=== PATIENT | female | born 1970 | race Caucasian/White ===

== ENCOUNTER 2017-12-29 09:27 | Emergency (ER) | payer OTHER ==
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
[2017-12-29] MEDS ORDERED: ONDANSETRON 4 MG ODT TH SL ONE (09:45)
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
[2017-12-29 11:00] VITALS: BP 105/72
[2017-12-29] MEDS ORDERED: OXYC-865 PO (11:09)
[2017-12-29] MEDS ORDERED: METH-543 PO (11:09)
== END 2017-12-29 11:25 | disposition home or self-care (01) ==
LOC: ER 09:57
DX: S13.4XXA Sprain of ligaments of cervical spine, initial encounter (principal); V49.60XA Unspecified car occupant injured in collision with unspecified motor vehicles in traffic accident, initial encounter
CPT/HCPCS: 72072; 72125; 99284; S0119; L0120; L0172